=== PATIENT | female | born 1950 | race Caucasian/White ===

== ENCOUNTER → 2017-09-10 | Outpatient (CLI) | payer MEDICARE, OTHER ==
[~2017-09-10] MED LIST: PRAV20 PO; RANI150 PO; TRIHYD5075; TRIHYD5075 PO; VALS80; VALS80 PO
[2017-09-12 13:22] LABS: Stool Occult Bld Immuno 1 Negative (NEGATIVE)
== END ==
LOC: LAB 09:19
PROVIDERS: Nurse Practitioner Family
DX: Z13.9 Encounter for screening, unspecified (principal); R77.1 Abnormality of globulin
CPT/HCPCS: 82274

== ENCOUNTER 2018-09-30 06:03 | Day surgery (SDC) | payer MEDICARE, OTHER ==
[~2018-09-30] VITALS: Ht 157.5 cm; Wt 74.2 kg
[~2018-09-30 06:03] MED LIST changes: +ALPR1 PO; +LOSARTAN POTAS100 MG PO; +METF500C PO; +POTA10T PO
== END 2018-09-30 08:38 | disposition home or self-care (01) ==
LOC: ORSCSDS 06:03
PROVIDERS: Surgery
PROC: 0DB68ZX Excision of Stomach, Via Natural or Artificial Opening Endoscopic, Diagnostic (ICD-10-PCS; principal; 2018-09-30 07:30)
PROC: 0DB58ZX Excision of Esophagus, Via Natural or Artificial Opening Endoscopic, Diagnostic (ICD-10-PCS; principal; 2018-09-30 07:30)
PROC: 0DBL8ZX Excision of Transverse Colon, Via Natural or Artificial Opening Endoscopic, Diagnostic (ICD-10-PCS; principal; 2018-09-30 07:30)
DX: K21.9 Gastro-esophageal reflux disease without esophagitis (principal); R10.13 Epigastric pain; K29.70 Gastritis, unspecified, without bleeding; Z12.11 Encounter for screening for malignant neoplasm of colon; D12.3 Benign neoplasm of transverse colon; K57.30 Diverticulosis of large intestine without perforation or abscess without bleeding; K64.8 Other hemorrhoids; I10 Essential (primary) hypertension; E11.9 Type 2 diabetes mellitus without complications; Z79.899 Other long term (current) drug therapy
CPT/HCPCS: 82947; 88305; 88341; 88342; J7120

== ENCOUNTER 2018-10-09 08:00 | Day surgery (SDC) | payer MEDICARE, OTHER ==
[~2018-10-09] VITALS: Ht 157.5 cm; Wt 74.1 kg
--- NOTE | 2018-10-09 09:23 | NUR ---
History, Chart, Medications and Allergies reviewed before start of procedure. Lungs clear T/O to Auscultation. Patient confirms NPO status and agrees with scheduled surgery. Patient reports completing Chlorhexadine shower X2 prior to admission to hospital.
--- NOTE | 2018-10-09 12:36 | NUR ---
REPORT TO [facility] PACU
--- NOTE | 2018-10-09 14:08 | NUR ---
Patient up to Ambulate independently. Gait steady. Discharge instructions reviewed with patient. Patient verbalizes understanding. Copy given to patient to take home. Patient States Post-Procedure ride home has been arranged. Discharged via wheelchair to private car for ride home.
== END 2018-10-09 22:38 | disposition home or self-care (01) ==
LOC: ORSCMMR 08:00 → ORD 10:45 → ORSCMMR 22:38
PROVIDERS: Surgery
PROC: BF101ZZ Fluoroscopy of Bile Ducts using Low Osmolar Contrast (ICD-10-PCS; principal; 2018-10-09 10:45)
PROC: 0FT44ZZ Resection of Gallbladder, Percutaneous Endoscopic Approach (ICD-10-PCS; principal; 2018-10-09 10:45)
DX: K82.4 Cholesterolosis of gallbladder (principal); I10 Essential (primary) hypertension; E11.9 Type 2 diabetes mellitus without complications; E78.5 Hyperlipidemia, unspecified; Z85.3 Personal history of malignant neoplasm of breast; Z90.12 Acquired absence of left breast and nipple; K21.9 Gastro-esophageal reflux disease without esophagitis; Z79.899 Other long term (current) drug therapy; Z79.84 Long term (current) use of oral hypoglycemic drugs; Z87.891 Personal history of nicotine dependence
CPT/HCPCS: 74300; 82947; 88304; C1729; J0330; J0690; J1885; J2250; J2405; J2710; J3010; J7120

== ENCOUNTER 2018-12-25 06:15 | Day surgery (SDC) | payer MEDICARE, OTHER ==
[~2018-12-25] VITALS: Ht 157.5 cm; Wt 76.1 kg
--- NOTE | 2018-12-25 09:11 | NUR ---
12/25/18 0911 Catherine Preciado LATE ENTRY: AT 0815 XRAY HERE TO ASSESS PLACEMENT AND AT 0935 IMAGING CALLED TO SAY THAT PER DR. MITCHEL COLLADO PLACEMENT IS GOOD.
--- NOTE | 2018-12-25 10:02 | NUR ---
12/25/18 1002 Nicolette Poon HEPARIN USED FOR FLUSING THE PORT
== END 2018-12-25 09:08 | disposition home or self-care (01) ==
LOC: ORSCSDS 06:15
PROVIDERS: Surgery
PROC: 02HV33Z Insertion of Infusion Device into Superior Vena Cava, Percutaneous Approach (ICD-10-PCS; principal; 2018-12-25 07:30)
PROC: B5181ZA Fluoroscopy of Superior Vena Cava using Low Osmolar Contrast, Guidance (ICD-10-PCS; principal; 2018-12-25 07:30)
DX: C88.4 Extranodal marginal zone B-cell lymphoma of mucosa-associated lymphoid tissue [MALT-lymphoma] (principal); I10 Essential (primary) hypertension; E11.9 Type 2 diabetes mellitus without complications; Z79.899 Other long term (current) drug therapy
CPT/HCPCS: 77001; 82947; C1788; J0690; J1642; J2001; J2250; J2704; J3010; J7120

== ENCOUNTER 2019-06-30 15:09 | Emergency (ER) | payer MEDICARE, OTHER ==
[~2019-06-30] VITALS: Ht 157.5 cm; Wt 74.8 kg
[2019-06-30] MEDS ORDERED: OMEP20ER PO (18:30)
[2019-06-30 19:31] LABS: BASOPHILS ABSOLUTE AUTO 0.06 K/mm3 (0.00-0.23); BASOPHILS PERCENT AUTO 2 % (0-2); EOSINOPHILS ABSOLUTE AUTO 0.17 K/mm3 (0.00-0.68); EOSINOPHILS PERCENT AUTO 5 % (0-6); Hematocrit 34.8 % (33.0-51.0); Hemoglobin 11.7 g/dL (11.5-16.0); IMMATURE GRAN PERCENT AUTO 0 % (0-1); LYMPHOCYTES ABSOLUTE AUTO 0.62 K/mm3 (0.84-5.20); LYMPHOCYTES PERCENT AUTO 17 % (21-46); MONOCYTES ABSOLUTE AUTO 0.82 K/mm3 (0.16-1.47); MONOCYTES PERCENT AUTO 22 % (4-13); Mean Corpuscular HGB 28.7 pg (26.0-34.0); Mean Corpuscular HGB Conc 33.6 g/dL (31.5-36.5); Mean Corpuscular Volume 85 fL (80-100); Mean Platelet Volume 9.2 fL (9.1-12.4); NEUTROPHILS ABSOLUTE AUTO 2.09 K/mm3 (1.96-9.15); NEUTROPHILS PERCENT AUTO 56 % (41-73); Platelet Count 386 K/mm3 (150-400); RDW Coefficient Variation 12.8 % (11.7-14.2); RDW Standard Deviation 39.7 fL (35.1-46.3); Red Blood Cell Count 4.08 M/mm3 (3.80-5.20); White Blood Cell Count 3.76 K/mm3 (4.00-11.30)
[2019-06-30 19:52] LABS: Alanine Aminotransfer (ALT/SGP 28 U/L (12-78); Albumin/Globulin Ratio 1.1 (0.8-1.8); Alk Phos 78 U/L (50-136); Anion Gap 10 mmol/L (6-16); Aspartate Aminotrans (AST/SGOT 35 U/L (12-37); Bilirubin, Total 0.3 mg/dL (0.1-1.0); Blood Urea Nitrogen 30 mg/dL (8-24); Bun/Creatinine Ratio 21.6 (12.0-20.0); CO2, Blood 26 mmol/L (21-32); Calcium, Blood 11.4 mg/dL (8.5-10.1); Chloride, Blood 102 mmol/L (98-108); Creatinine, Blood 1.39 mg/dL (0.40-1.00); Globulin, Blood 3.7 g/dL (2.2-4.0); Glomerular Filtration Rate 40 (60-); Glucose, Blood 105 mg/dL (70-99); Potassium, Blood 3.8 mmol/L (3.5-5.5); Sodium, Blood 138 mmol/L (136-145); Total Protein, Blood 7.7 g/dL (6.4-8.2); Troponin I <0.015 ng/mL (0.000-0.040)
== END 2019-06-30 21:08 | disposition home or self-care (01) ==
LOC: ER 15:09
PROVIDERS: Physician Assistant
DX: R00.2 Palpitations (principal); I10 Essential (primary) hypertension; Z85.72 Personal history of non-Hodgkin lymphomas; Z87.891 Personal history of nicotine dependence; Z79.899 Other long term (current) drug therapy; Z79.84 Long term (current) use of oral hypoglycemic drugs
CPT/HCPCS: 36415; 71046; 80053; 84484; 85025; 93005; 93010; 99285-25

== ENCOUNTER 2019-07-03 22:26 | Observation (INO) | payer MEDICARE, OTHER ==
[~2019-07-03] VITALS: Ht 157.5 cm; Wt 76.8 kg
[~2019-07-03 22:26] MED LIST changes: +OMEP20ER PO
[2019-07-03 23:24] LABS: BASOPHILS ABSOLUTE AUTO 0.06 K/mm3 (0.00-0.23); BASOPHILS PERCENT AUTO 1 % (0-2); EOSINOPHILS ABSOLUTE AUTO 0.21 K/mm3 (0.00-0.68); EOSINOPHILS PERCENT AUTO 5 % (0-6); Hematocrit 37.1 % (33.0-51.0); Hemoglobin 12.6 g/dL (11.5-16.0); IMMATURE GRAN ABSOLUTE AUTO 0.01 K/mm3 (0.00-0.10); IMMATURE GRAN PERCENT AUTO 0 % (0-1); LYMPHOCYTES ABSOLUTE AUTO 0.98 K/mm3 (0.84-5.20); LYMPHOCYTES PERCENT AUTO 21 % (21-46); MONOCYTES ABSOLUTE AUTO 1.12 K/mm3 (0.16-1.47); MONOCYTES PERCENT AUTO 25 % (4-13); Mean Corpuscular HGB 28.6 pg (26.0-34.0); Mean Corpuscular Volume 84 fL (80-100); Mean Platelet Volume 9.7 fL (9.1-12.4); NEUTROPHILS PERCENT AUTO 48 % (41-73); Platelet Count 411 K/mm3 (150-400); RDW Coefficient Variation 12.6 % (11.7-14.2); RDW Standard Deviation 38.1 fL (35.1-46.3); Red Blood Cell Count 4.41 M/mm3 (3.80-5.20); White Blood Cell Count 4.58 K/mm3 (4.00-11.30)
[2019-07-03 23:39] LABS: Alanine Aminotransfer (ALT/SGP 26 U/L (12-78); Albumin, Blood 4.3 g/dL (3.4-5.0); Albumin/Globulin Ratio 1.1 (0.8-1.8); Alk Phos 83 U/L (50-136); Anion Gap 9 mmol/L (6-16); Aspartate Aminotrans (AST/SGOT 28 U/L (12-37); Bilirubin, Total 0.3 mg/dL (0.1-1.0); Blood Urea Nitrogen 22 mg/dL (8-24); Bun/Creatinine Ratio 16.2 (12.0-20.0); CO2, Blood 26 mmol/L (21-32); Calcium, Blood 10.7 mg/dL (8.5-10.1); Chloride, Blood 98 mmol/L (98-108); Creatinine, Blood 1.36 mg/dL (0.40-1.00); Glomerular Filtration Rate 41 (60-); Glucose, Blood 121 mg/dL (70-99); Potassium, Blood 3.1 mmol/L (3.5-5.5); Sodium, Blood 133 mmol/L (136-145); Total Protein, Blood 8.3 g/dL (6.4-8.2); Troponin I <0.015 ng/mL (0.000-0.040)
[2019-07-04 01:17] LABS: Magnesium, Blood 1.2 mg/dL (1.6-2.4)
--- NOTE | 2019-07-04 02:15 | NUR ---
ADMISSION/PT ARRIVAL PT ARRIVES TO PCU 2 FROM ER VIA GURNEY. PT IS AOX4 AND AMBULATES WITH STANDBY ASSIST TO HOSPITAL BED. VSS. CARDIZEM CURRENTLY INFUSING AT 5 MG/HR. HEART RHYTHM IS CURRENTLY NORMAL SINUS IN THE 90s PER KAMERON H, HEEL FINISHER. PT DENIES CHEST PAIN, DIZZINESS/LIGHTHEADEDNESS, OR DYSPNEA. ABLE TO AMBULATE TO THE RESTROOM WITHOUT DIFFICULTY. PT REPORTS THAT SHE HAS BEEN HAVING "PALPATATIONS" THROUGHOUT THE DAY TODAY AND WAS SEEN IN THE ED A FEW DAYS AGO FOR THE SAME. ALSO REPORTING SLIGHT NAUSEA SINCE TAKING ORAL POTASSIUM IN ER. PT ORIENTED TO ROOM AND CALL LIGHT SYSTEM AND ENCOURAGED TO CALL FOR ASSISTANCE. EDUCATION PROVIDED ON CURRENT CONDITION AND POTENTIAL MANAGEMENT. BROTHER AT BEDSIDE AND PLANS TO STAY THROUGH THE NIGHT. WILL CONTINUE WITH ADMISSION AND MONITORING. BED IN LOW POSITION, CALL LIGHT IN REACH.
[2019-07-04 04:31] LABS: Free Thyroxine 1.13 ng/dL (0.70-1.60)
[2019-07-04 04:34] LABS: Triiodothyronine, Free 3.64 pg/mL (2.18-3.98)
--- NOTE | 2019-07-04 05:57 | NUR ---
SHIFT SUMMARY PT HAS REMAINED AOX4 THROUGHOUT SHIFT. VSS. PLEASANT AND COOPERATIVE WITH CARE. PT HAS RESTED ON AND OFF SINCE ARRIVAL THIS AM WITH FAMILY AT BEDSIDE. WAKES EASILY FOR CARE. MEDIPORT ACCESSED WITHOUT DIFFICULTY, GOOD BLOOD RETURN AND CURRENTLY INFUSING NS @ 75 ML/HR. HEART RHYTHM HAS REMAINED IN NORMAL SINUS SINCE ARRIVAL TO UNIT WITH RATE CURRENTLY IN THE 60s, CARDIZEM DRIP ON STANDBY AT THIS TIME. PT MEDICATED ONCE FOR NAUSEA THAT RELIEVED WITH ORDERED MEDICATIONS. PT CONTINUES TO DENY PAIN, DIZZINESS, AND DYSPNEA. NO OTHER CHANGES NOTED FROM INITIAL ASSESSMENT. WILL CONTINUE TO MONITOR AND REPORT TO ONCOMING SHIFT RN. BED IN LOW POSITION, CALL LIGHT IN REACH.
--- NOTE | 2019-07-04 07:35 | NUR ---
ASSUMED CARE: PT RESTING IN BED AT THIS TIME. LAB CAME BY TO COLLECT SPECIMEN. BROTHER SLEEPING AT BEDSIDE. NO CONCERNS AT THIS TIME.
[2019-07-04 07:46] LABS: Hemoglobin 9.6 g/dL (11.5-16.0); Mean Corpuscular HGB 27.8 pg (26.0-34.0); Mean Corpuscular HGB Conc 33.1 g/dL (31.5-36.5); Mean Corpuscular Volume 84 fL (80-100); Mean Platelet Volume 9.4 fL (9.1-12.4); Platelet Count 317 K/mm3 (150-400); RDW Coefficient Variation 12.8 % (11.7-14.2); RDW Standard Deviation 38.5 fL (35.1-46.3); Red Blood Cell Count 3.45 M/mm3 (3.80-5.20); White Blood Cell Count 3.23 K/mm3 (4.00-11.30)
[2019-07-04 08:04] LABS: Bun/Creatinine Ratio 17.1 (12.0-20.0); Calcium, Blood 9.4 mg/dL (8.5-10.1); Creatinine, Blood 1.11 mg/dL (0.40-1.00); Potassium, Blood 3.4 mmol/L (3.5-5.5)
--- NOTE | 2019-07-04 09:34 | NUR ---
ECHOCARDIOGRAM COMPLETED
--- NOTE | 2019-07-04 10:46 | NUR ---
DISCUSSED WITH DR WOO NEED FOR RATE CONTROL MEDS AND THAT PT STATES THIS IS NOT THE FIRST TIME SHE'S BEEN TO THE HOSPITAL FOR RATE ISSUES. DR WOO REVIEWED OLD EKGS WITH MORTGAGE LOAN ORIGINATOR WHICH SHOWED NSR INSTEAD OF AFIB. DR WOO STATES WILL DC WITH RATE CONTROL BUT NOT ANTICOAGULANT AND TO FOLLOW UP WITH PRIMARY
[2019-07-04] MEDS ORDERED: METO25ER PO (12:47)
--- NOTE | 2019-07-04 13:47 | NUR ---
DC'D IV AND MEDIPORT WITHOUT DIFFICULTY. MEDICATED WITH METOPROLOL PRIOR TO DC. DISCUSSED THAT METOPROLOL IS FOR RATE CONTROL BUT DOCTOR BONDS WISHES FOR HER TO SPEAK WITH HER PRIMARY ABOUT ANTICOAGULANT. DENIED FURTHER NEEDS OR CONCERNS.
== END 2019-07-04 14:22 | disposition home or self-care (01) ==
LOC: ER 22:26 → PCU 22:27
PROVIDERS: Emergency Medicine; Nurse Practitioner Acute Care; ADMIT Hospitalist
DX: I47.1 Supraventricular tachycardia (principal); I10 Essential (primary) hypertension; I48.91 Unspecified atrial fibrillation; E78.5 Hyperlipidemia, unspecified; R94.6 Abnormal results of thyroid function studies; E87.6 Hypokalemia; E83.42 Hypomagnesemia; E11.9 Type 2 diabetes mellitus without complications; Z87.891 Personal history of nicotine dependence; Z79.84 Long term (current) use of oral hypoglycemic drugs; Z79.899 Other long term (current) drug therapy
CPT/HCPCS: 36415; 71046; 80048; 80053; 82947; 83735; 83880; 84439; 84443; 84481; 84484; 85025; 85027; 93005; 93010; 93306; 96361; 96365; 96372; 96375; 96376; 99285-25; G0378; J0153; J1642; J1650; J2405; J3475; J7030

== ENCOUNTER 2019-07-08 14:11 | Emergency (ER) | payer MEDICARE, OTHER ==
[~2019-07-08] VITALS: Ht 157.5 cm; Wt 72.6 kg
[~2019-07-08 14:11] MED LIST changes: +METO25ER PO
[2019-07-08 15:07] LABS: BASOPHILS ABSOLUTE AUTO 0.04 K/mm3 (0.00-0.23); BASOPHILS PERCENT AUTO 1 % (0-2); EOSINOPHILS ABSOLUTE AUTO 0.11 K/mm3 (0.00-0.68); EOSINOPHILS PERCENT AUTO 3 % (0-6); Hematocrit 37.8 % (33.0-51.0); Hemoglobin 12.8 g/dL (11.5-16.0); IMMATURE GRAN ABSOLUTE AUTO 0.01 K/mm3 (0.00-0.10); IMMATURE GRAN PERCENT AUTO 0 % (0-1); LYMPHOCYTES ABSOLUTE AUTO 0.87 K/mm3 (0.84-5.20); LYMPHOCYTES PERCENT AUTO 22 % (21-46); MONOCYTES ABSOLUTE AUTO 0.69 K/mm3 (0.16-1.47); MONOCYTES PERCENT AUTO 17 % (4-13); Mean Corpuscular HGB 28.7 pg (26.0-34.0); Mean Corpuscular HGB Conc 33.9 g/dL (31.5-36.5); Mean Corpuscular Volume 85 fL (80-100); Mean Platelet Volume 9.7 fL (9.1-12.4); NEUTROPHILS ABSOLUTE AUTO 2.29 K/mm3 (1.96-9.15); NEUTROPHILS PERCENT AUTO 57 % (41-73); Platelet Count 389 K/mm3 (150-400); RDW Coefficient Variation 12.7 % (11.7-14.2); RDW Standard Deviation 38.9 fL (35.1-46.3); Red Blood Cell Count 4.46 M/mm3 (3.80-5.20); White Blood Cell Count 4.01 K/mm3 (4.00-11.30)
[2019-07-08 15:35] LABS: Troponin I <0.015 ng/mL (0.000-0.040)
[2019-07-08 15:36] LABS: Alanine Aminotransfer (ALT/SGP 22 U/L (12-78); Albumin, Blood 4.2 g/dL (3.4-5.0); Albumin/Globulin Ratio 1.1 (0.8-1.8); Alk Phos 78 U/L (50-136); Anion Gap 11 mmol/L (6-16); Aspartate Aminotrans (AST/SGOT 29 U/L (12-37); Bilirubin, Total 0.6 mg/dL (0.1-1.0); Blood Urea Nitrogen 16 mg/dL (8-24); Bun/Creatinine Ratio 13.4 (12.0-20.0); CO2, Blood 26 mmol/L (21-32); Calcium, Blood 10.1 mg/dL (8.5-10.1); Chloride, Blood 100 mmol/L (98-108); Creatinine, Blood 1.19 mg/dL (0.40-1.00); Globulin, Blood 3.9 g/dL (2.2-4.0); Glomerular Filtration Rate 48 (60-); Glucose, Blood 126 mg/dL (70-99); Potassium, Blood 3.2 mmol/L (3.5-5.5); Sodium, Blood 137 mmol/L (136-145); Total Protein, Blood 8.1 g/dL (6.4-8.2)
== END 2019-07-08 19:21 | disposition home or self-care (01) ==
LOC: ER 14:11
PROVIDERS: Physician Assistant
DX: R00.2 Palpitations (principal); R00.0 Tachycardia, unspecified; I10 Essential (primary) hypertension; Z85.72 Personal history of non-Hodgkin lymphomas; Z79.899 Other long term (current) drug therapy; Z79.84 Long term (current) use of oral hypoglycemic drugs
CPT/HCPCS: 36415; 80053; 84484; 85025; 93005; 93010; 99285-25

== ENCOUNTER → 2020-05-19 | Outpatient (CLI) | payer MEDICARE | END | disposition home or self-care (01) | LOC: PLD 12:44 → LAB SHORT 12:44 | DX: D48.5 Neoplasm of uncertain behavior of skin (principal) | CPT/HCPCS: 88305 ==

== ENCOUNTER → 2021-10-21 | Outpatient (CLI) | payer MEDICARE ==
[~2021-10-21] MED LIST changes: +Dyazide 37.5/251 EA; +MAGNESIUM PO; -TRIHYD5075 PO
== END | disposition home or self-care (01) ==
LOC: LAB 18:03 → LAB SHORT 18:03
DX: F51.04 Psychophysiologic insomnia (principal)
CPT/HCPCS: G0480